=== PATIENT | male | born 1960 | race Caucasian/White ===

== ENCOUNTER 2016-11-20 10:21 | Emergency (ER) | payer BC ==
[~2016-11-20] VITALS: Ht 170.2 cm; Wt 53.5 kg
--- NOTE | ~2016-11-20 | CR72 ---
[facility] A Service of [facility] & [facility] RADIOLOGY TEXT RESULTS PATIENT: YOKO LUGO LOCATION: [facility] : 64 UNIT #: [id number] AGE: [address]: Rudi Irivn MD SEX: M ORDER DR: [id number] [facility] [address] [place], [place] [address] [id number] E MR#: [id number] Acc #: [id number] NAME: YOKO LUGO : 1960 SEX: M STUDY DATE/TIME: 11/20/2016 12:02 UNIT: [facility] ROOM: STUDY DESCRIPTION: CR Chest Single View Portable Attending Physician: Rudi Irvin M.D. Ordering Physician: Rudi Irvin M.D. Primary Care Physician: Michele Soto M.D. MEDICAL IMAGING REPORT This report is preliminary unless electronic signature is present EXAM Portable chest radiograph. INDICATIONS Chest pain and pressure starting this morning. FINDINGS A single AP portable view of the chest shows both lungs to be clear. The heart is normal in size. The mediastinal contour is normal. No significant bone abnormalities are seen. IMPRESSION Normal portable chest. Negative. Dictated by... Bianca Vega M.D. THIS IS AN ELECTRONICALLY VERIFIED REPORT Bianca Vega M.D. at 11/22/2016 8:32 AM AFF/bd TD: 11/21/2016 06:13 JOB #: [id number] MEDICAL IMAGING REPORT Page 1 of 1 COPY
--- NOTE | ~2016-11-20 | EKG ---
PATIENT: YOKO LUGO UNIT #: [id number] Ventricular Rate: 88 BPM Atrial Rate: 88 BPM P-R Interval: 140 ms QRS Duration: 86 ms Q-T Interval: 350 ms QTC Calculation(Bezet): 423 ms P Piffard: 76 degrees Calculated R Piffard: 72 degrees Calculated T Piffard: 66 degrees Diagnosis Line: Normal sinus rhythm with sinus arrhythmia Diagnosis Line: Possible Left atrial enlargement Diagnosis Line: Borderline ECG Diagnosis Line: When compared with ECG of 20-MAY-2014 21:11, Diagnosis Line: No significant change was found Diagnosis Line: Confirmed by ILEANA SIMPSON MD ([id number]) on Diagnosis Line: 11/20/2016 2:26:59 PM INTERPRETING MD: CALVIN ARIAS
--- NOTE | ~2016-11-20 | CT16 ---
[facility] A Service of [facility] & [facility] RADIOLOGY TEXT RESULTS PATIENT: YOKO LUGO LOCATION: [facility] : 64 UNIT #: [id number] AGE: [address]: Rudi Irvin MD SEX: M ORDER DR: [id number] [facility] [address] [place], [place] [address] [id number] E MR#: [id number] Acc #: [id number] NAME: YOKO LUGO : 1960 SEX: M STUDY DATE/TIME: 11/20/2016 13:28 UNIT: [facility] ROOM: STUDY DESCRIPTION: CT Angio Chest for PE Attending Physician: Rudi Irvin M.D. Ordering Physician: Rudi Irvin M.D. Primary Care Physician: Michele Soto M.D. MEDICAL IMAGING REPORT This report is preliminary unless electronic signature is present EXAM CT angiogram of the chest for pulmonary embolism 11/20/2016 1328 hours CLINICAL HISTORY 56-year-old man complaining of right-sided chest pain since 0900 hours this morning. Shortness of air today. Evaluate for pulmonary embolism. COMPARISON Chest film 11/20/2016. No prior CT scan. TECHNIQUE Dynamic helical CT angiographic images were obtained from the thoracic inlet through the adrenal glands. 3-D sagittal and coronal reconstructions were performed. Contrast was Isovue-370 100 mL IV. Total exam DLP 333 mGy-cm. This CT exam was performed with one or more of the following radiation dose reduction techniques: Automatic exposure control, adjustment of mA and/or kV according to patient size, and iterative reconstruction. FINDINGS Images through the thoracic inlet demonstrate a normal thyroid gland. There is no adenopathy. Imaging through the chest demonstrates diagnostic quality opacification of the pulmonary arteries which are normal in caliber. There are no filling defects to suggest the presence of pulmonary emboli. The ascending aorta is moderately well opacified and is normal in caliber measuring 2.9 cm. There is no dissection. Cardiac chambers, pericardium and esophagus are normal. Lung window images demonstrate no acute pulmonary density. There is no edema or effusion. No pneumothorax. Bone window images demonstrate no rib or sternal fracture. Thoracic spine appears normal. STS. [facility] A Service of [facility] & [facility] RADIOLOGY TEXT RESULTS PATIENT: YOKO LUGO LOCATION: [facility] : 64 UNIT #: [id number] AGE: [address]: Rudi Irvin MD SEX: M ORDER DR: Limited views through the upper abdomen are negative. IMPRESSION 1. No evidence of pulmonary embolism. Normal aorta. 2. Lungs are hyperinflated but clear. There is no pleural effusion, pneumothorax, or fracture seen. Dictated by... Deirdre Rosenbaum M.D. THIS IS AN ELECTRONICALLY VERIFIED REPORT Deirdre Rosenbaum M.D. at 11/21/2016 9:27 AM Jay TD: 11/21/2016 08:07 JOB #: [id number] MEDICAL IMAGING REPORT Page 1 of 1 COPY
[~2016-11-20 10:21] MED LIST: CIPRO PO; MULTI-VITAMIN1 TAB; NSAID; PEPCID PO; [UNRECOGNIZED DRUG - OTHER]
[2016-11-20 11:47] LABS: BASOPHIL# 0.2 X10e3 (0-0.3); EOSINOPHIL# 0.4 X10e3 (0-0.7); EOSINOPHIL% 6.1 % (0.0-7.0); HEMATOCRIT 44.3 % (38.0-50.0); HEMOGLOBIN 15.1 gm/dL (13.0-16.0); LYMPHOCYTE# 1.4 X10e3 (1.0-3.5); LYMPHOCYTE% 23.3 % (17.0-45.0); MEAN CELL VOLUME 99.3 FL (83-96); MEAN CORPUSCULAR HEMOGLOBIN 33.9 PG (28-34); MEAN CORPUSCULAR HGB CONC 34.1 g/dL (30-36); MEAN PLATELET VOLUME 7.7 FL (6.5-11.5); MONOCYTE# 0.6 X10e3 (0-1.0); MONOCYTE% 9.8 % (3.0-12.0); NEUTROPHIL# 3.6 X10e3 (1.5-7.1); NEUTROPHIL% 57.8 % (40-75); PLATELET COUNT 294 X10e3 (140-420); RED BLOOD COUNT 4.46 X10e (3.90-5.60); RED CELL DISTRIBUTION WIDTH 13.7 % (11.0-15.5); WHITE BLOOD COUNT 6.1 X10e3 (4.0-10.5)
[2016-11-20 11:58] LABS: POC - CKMB <1.0 ng/mL (0.0-7.9); POC - TROPONIN <0.05 ng/mL (<=0.05)
[2016-11-20 12:01] LABS: DIFF IND NO
[2016-11-20 12:14] LABS: ALBUMIN SERUM 4.4 g/dL (3.5-5.0); BILIRUBIN, DIRECT 0.1 mg/dL (0.0-0.2); BILIRUBIN,INDIRECT 0.7 mg/dL (0.0-0.9); BILIRUBIN,TOTAL 0.8 mg/dL (0.2-2.0); CALCIUM SERUM 9.4 mg/dL (8.4-10.2); POTASSIUM 4.3 mmol/L (3.5-5.1); PROTEIN TOTAL SERUM 7.1 g/dL (6.0-8.3)
[2016-11-20 13:30] LABS: POC - CKMB <1.0 ng/mL (0.0-7.9); POC - TROPONIN <0.05 ng/mL (<=0.05)
== END 2016-11-20 14:13 | disposition home or self-care (01) ==
LOC: CED 10:21
PROVIDERS: Emergency Medicine
DX: R07.89 Other chest pain (principal); F17.200 Nicotine dependence, unspecified, uncomplicated; Z88.8 Allergy status to other drugs, medicaments and biological substances
CPT/HCPCS: 36415; 71010; 71275; 80048; 80076; 82553; 84484; 85025; 85379; 93005; 99285; Q9967